=== PATIENT | female | born 1995 | race African-American/Black ===

== ENCOUNTER 2023-12-28 11:56 | Emergency (ER) | payer OTHER ==
[~2023-12-28] VITALS: Ht 167.6 cm; Wt 100.0 kg
[2023-12-28 12:13] VITALS: BP 120/74; PULSE 87; RESP 18; TEMP 98.5; O2SAT 99
[2023-12-28 12:45] LABS: CLARITY URINE CLOUDY (CLEAR); COLOR URINE YELLOW (YELLOW); GLUCOSE URINE NEGATIVE (NEGATIVE); KETONES URINE TRACE (NEGATIVE); LEUKOCYTE ESTERASE URINE 2+ (NEGATIVE); NITRITE URINE NEGATIVE (NEGATIVE); OCCULT BLOOD URINE NEGATIVE (NEGATIVE); PH URINE 6.5 (4.5-8.0); PROTEIN URINE NEGATIVE (NEGATIVE); SPECIFIC GRAVITY URINE 1.024 (1.005-1.030)
[2023-12-28 13:06] LABS: BASOPHILS % 0.6 % (0.0-2.0); HEMATOCRIT. 36.5 % (36.0-48.0); HEMOGLOBIN. 12.2 g/dL (12.0-16.0); MEAN CORPUSCULAR HEMOGLOBIN 30.2 pg (28.0-32.0); MEAN CORPUSCULAR HGB CONC 33.3 g/dL (31.0-37.0); MEAN CORPUSCULAR VOLUME 90.5 fL (81.0-99.0); MEAN PLATELET VOLUME 8.2 fl (7.4-10.4); MONOCYTES % 6.1 % (2.0-8.0); NEUTROPHILS % 65.3 % (40.0-76.0); PLATELET 210 x1000/uL (130-400); RED BLOOD CELL COUNT 4.03 mill/uL (4.2-5.4); WHITE BLOOD COUNT 7.4 x1000/uL (4.5-11.0)
[2023-12-28 13:15] LABS: CHLORIDE 104 mEq/L (98-107); POTASSIUM 3.8 mEq/L (3.5-5.1); SODIUM 133 mEq/L (136-145)
[2023-12-28 13:16] LABS: CARBON DIOXIDE 23 mEq/L (21-32)
[2023-12-28 13:17] LABS: CALCIUM 9.2 mg/dL (8.7-10.4)
[2023-12-28 13:20] LABS: HCG SCREEN POSITIVE
[2023-12-28 13:21] LABS: CREATININE 0.6 mg/dL (0.6-1.0); GLUCOSE 86 mg/dL (70-105)
[2023-12-28 13:22] LABS: UREA NITROGEN BLOOD 8 mg/dL (9-23)
[2023-12-28 13:23] LABS: ALANINE AMINOTRANSFERASE 16 IU/L (10-49); ALBUMIN 4.2 g/dL (3.2-4.8); ASPARTATE AMINOTRANSFERASE 16 IU/L (<34); BILIRUBIN DIRECT 0.1 mg/dL (<=3.0); BILIRUBIN TOTAL 0.4 mg/dL (0.1-1.0); PROTEIN TOTAL 7.2 g/dL (6.0-8.3)
[2023-12-28 14:00] LABS: MUCUS URINE 2+ /lpf (< = 2+); SQUAMOUS EPITHELIAL CELL URINE 2+ /lpf (RARE/1+)
[2023-12-28 14:01] LABS: RBC URINE NONE SEEN /hpf (0-2)
[2023-12-28 14:02] LABS: BACTERIA URINE 2+
[2023-12-28] MEDS ORDERED: CEPH250C2 MT (17:01)
== END 2023-12-28 18:26 | disposition home or self-care (01) ==
LOC: ER 11:56
DX: O23.41 Unspecified infection of urinary tract in pregnancy, first trimester (principal); N39.0 Urinary tract infection, site not specified; Z3A.12 12 weeks gestation of pregnancy
CPT/HCPCS: 36415; 76801; 80048; 80076; 81003; 81025; 84702; 84703; 85025; 99284

== ENCOUNTER 2024-04-24 14:59 | Emergency (ER) | payer MEDICAID, OTHER ==
[~2024-04-24] VITALS: Ht 165.1 cm; Wt 85.0 kg
[~2024-04-24 14:59] MED LIST: CEPH250C2 MT
[2024-04-24 15:00] VITALS: O2SAT 99
[2024-04-24 15:39] LABS: BASOPHILS % 0.6 % (0.0-2.0); EOSINOPHILS % 0.8 % (0.0-5.0); HEMOGLOBIN. 11.8 g/dL (12.0-16.0); LYMPHOCYTES % 24.2 % (20.0-50.0); MEAN CORPUSCULAR HEMOGLOBIN 30.2 pg (28.0-32.0); MEAN CORPUSCULAR HGB CONC 33.6 g/dL (31.0-37.0); MEAN CORPUSCULAR VOLUME 89.8 fL (81.0-99.0); MEAN PLATELET VOLUME 9.2 fl (7.4-10.4); MONOCYTES % 7.6 % (2.0-8.0); NEUTROPHILS % 66.8 % (40.0-76.0); PLATELET 184 x1000/uL (130-400); RED CELL DISTRIBUTION WIDTH 14.3 % (11.6-14.6); WHITE BLOOD COUNT 9.4 x1000/uL (4.5-11.0)
[2024-04-24 15:46] LABS: CHLORIDE 107 mEq/L (98-107); POTASSIUM 3.8 mEq/L (3.5-5.1); SODIUM 136 mEq/L (136-145)
[2024-04-24 15:47] LABS: CARBON DIOXIDE 22 mEq/L (21-32)
[2024-04-24 15:48] LABS: CALCIUM 9.2 mg/dL (8.7-10.4)
[2024-04-24 15:52] LABS: CREATININE 0.6 mg/dL (0.6-1.0); GLUCOSE 72 mg/dL (70-105)
[2024-04-24 15:53] LABS: UREA NITROGEN BLOOD 5 mg/dL (9-23)
[2024-04-24] MEDS: ONDANSETRON HCL 4MG/2ML INJ IV ONE (17:23)
[2024-04-24 17:57] VITALS: TEMP 36.78072
[2024-04-24 18:13] VITALS: BP 129/76; PULSE 70; RESP 16; O2SAT 99
== END 2024-04-24 18:24 | disposition short-term general hospital (02) ==
LOC: ER 14:59
DX: O62.4 Hypertonic, incoordinate, and prolonged uterine contractions (principal); Z3A.32 32 weeks gestation of pregnancy
CPT/HCPCS: 99285; 96374; 76818; 76805; 80048; 85025; 86850; 86900; 86901; 36415; 86705; J2405